=== PATIENT | female | born 1965 | race Hispanic/Latino ===

== ENCOUNTER 2018-09-09 11:48 | Emergency (ER) | payer OTHER | END 2018-09-09 13:20 | disposition home or self-care (01) | LOC: EDH 11:48 | DX: M25.561 Pain in right knee (principal); Z85.3 Personal history of malignant neoplasm of breast; Z90.710 Acquired absence of both cervix and uterus; X50.1XXA Overexertion from prolonged static or awkward postures, initial encounter; Y93.89 Activity, other specified; Y92.098 Other place in other non-institutional residence as the place of occurrence of the external cause; Y99.8 Other external cause status | CPT/HCPCS: 29505; 73562; 73590 ==

== ENCOUNTER → 2018-10-29 | Outpatient (CLI) | payer OTHER | END | disposition home or self-care (01) | LOC: RAH 07:55 | PROVIDERS: ATTEND Internal Medicine | DX: S83.241A Other tear of medial meniscus, current injury, right knee, initial encounter (principal); S83.91XA Sprain of unspecified site of right knee, initial encounter; M25.461 Effusion, right knee; X58.XXXA Exposure to other specified factors, initial encounter; Y93.89 Activity, other specified; Y92.89 Other specified places as the place of occurrence of the external cause; Y99.8 Other external cause status; M71.21 Synovial cyst of popliteal space [Baker], right knee | CPT/HCPCS: 73721 ==

== ENCOUNTER 2019-02-22 06:59 | Day surgery (SDC) | payer OTHER ==
[2019-02-21 15:20] LABS: BASOPHILS % (AUTO) 0.7 % (0.0-5.0); EOSINOPHILS % (AUTO) 3.1 % (0.0-8.0); HEMATOCRIT 43.5 % (36-48); LYMPHOCYTES % (AUTO) 36.3 % (21.0-51.0); MEAN CORPUSCULAR HEMOGLOBIN 29.2 pg (27.0-33.0); MEAN CORPUSCULAR HGB CONC 34.3 g/dL (32.0-36.0); MEAN CORPUSCULAR VOLUME 85.3 fL (79-99); MONOCYTES % (AUTO) 5.9 % (3.0-13.0); PLATELET COUNT (AUTO) 238 K/uL (130-400); RED CELL DISTRIBUTION WIDTH 13.9 % (11.0-15.5); WHITE BLOOD COUNT (AUTO) 7.6 K/uL (4.8-10.8)
[2019-02-21 15:30] LABS: CREATININE 0.9 mg/dL (0.5-1.5); POTASSIUM 3.7 mmol/L (3.5-5.1)
[2019-02-21 15:33] VITALS: BP 161/89
[2019-02-21 15:55] VITALS: BP 169/101
[~2019-02-22] VITALS: Ht 149.9 cm; Wt 86.6 kg
[2019-02-22] VITALS (16 sets, daily range): BP systolic 93–147; BP diastolic 43–98
[2019-02-22] MEDS: CEFAZOLIN SODIUM 1 GM VIAL IVP SCH ×2 (06:00→09:25)
[~2019-02-22 06:59] MED LIST: CA C1TAB98 PO; EXEM25 PO; NAPR-1000 PO
[2019-02-22] MEDS ORDERED: LACTATED RINGERS 1000ML 1,000 ML IV ONE (07:31)
[2019-02-22] MEDS ORDERED: PROPOFOL 10 MG/ML 20ML VIAL IV ONE ×2 (08:14→10:01)
[2019-02-22] MEDS ORDERED: LIDOCAINE PF 2% 5ML ABBOJECT ONE (08:14)
[2019-02-22] MEDS ORDERED: FENTANYL CITRATE PF 50 MCG/1 ML 2ML VIAL ONE ×2 (08:15→10:05)
[2019-02-22] MEDS ORDERED: MIDAZOLAM HCL 1 MG/ML 2ML VIAL ONE (08:15)
[2019-02-22] MEDS ORDERED: TYL3 PO (10:22)
[2019-02-22] MEDS ORDERED: CEPH-578 PO (10:22)
--- NOTE | 2019-02-22 11:41 | NUR ---
PT. V/S ARE STABLE NO COMPLICATIONS WITH PROCEDURE. PT GIVEN INSTRUCTION FOR CRUTCHES, RX GIVEN TO . PT LEFT VIA WHEEL CHAIR IN PVT CAR.
== END 2019-02-22 11:41 | disposition home or self-care (01) ==
LOC: DAH 06:59
PROVIDERS: ATTEND Orthopaedic Surgery
DX: M23.41 Loose body in knee, right knee (principal); M22.41 Chondromalacia patellae, right knee; Z79.899 Other long term (current) drug therapy; Z98.890 Other specified postprocedural states; Z85.3 Personal history of malignant neoplasm of breast; Z90.710 Acquired absence of both cervix and uterus
CPT/HCPCS: 29874; 36415; 80048; 85025; A4215; A4221; A4222; A4223; A4606; A4649 ×2; A4930; A5120; A6223; J0690; J2001; J2250; J2704 ×2; J3010; J7120